=== PATIENT | male | born 1950 | race Caucasian/White ===

== ENCOUNTER 2017-12-28 07:29 | Day surgery (SDC) | payer MEDICARE, OTHER ==
[2017-12-28] MEDS ORDERED: NS 1,000 ML IV (08:00)
[2017-12-28] MEDS ORDERED: PROPOFOL 200 MG/20 ML VIAL As Ordered ×2 (08:24→08:28)
== END 2017-12-28 09:15 | disposition home or self-care (01) ==
LOC: M OPP 07:29
DX: Z12.11 Encounter for screening for malignant neoplasm of colon (principal); D12.5 Benign neoplasm of sigmoid colon; N40.0 Benign prostatic hyperplasia without lower urinary tract symptoms; Z79.899 Other long term (current) drug therapy; Z88.0 Allergy status to penicillin
CPT/HCPCS: 45380

== ENCOUNTER 2018-01-11 16:31 | Outpatient (CLI) | payer MEDICARE, OTHER ==
[2018-01-11] MEDS: IMMUNE GLOBULIN IM (17:52)
== END 2018-01-11 18:49 | disposition home or self-care (01) ==
LOC: M OPCLI4PR 16:31 → M PED 16:31 → M OPCLI4PR 18:49
DX: Z20.5 Contact with and (suspected) exposure to viral hepatitis (principal); Z79.899 Other long term (current) drug therapy
CPT/HCPCS: J1460

== ENCOUNTER 2023-08-12 06:39 | Day surgery (SDC) | payer MEDICARE, OTHER ==
[~2023-08-12] VITALS: Ht 182.9 cm; Wt 90.6 kg
[~2023-08-12 06:39] MED LIST: ALBU8.5H; ALFU10TA3 PO; BREO1INH INH; CYAN500T14 PO; EQL50TAB2 PO; FINA5TAB2 PO; MAGN400C2 PO; MULT-90 PO; MULT1TAB10 PO; OMEG10002 PO; OMEP40CA5 PO; VITA100093 PO
[2023-08-12] MEDS: NS 1,000 ML IV ONE (07:09)
[2023-08-12] MEDS ORDERED: propofoL 200 MG/20 ML VIAL As Ordered ONE (07:39)
[2023-08-12] MEDS ORDERED: LIDOCAINE 2% 100MG/5ML SDV (FOR ANES.) As Ordered ONE (07:39)
[2023-08-12 07:50] VITALS: TEMP 97.8
[2023-08-12 08:04] VITALS: BP 123/73; O2SAT 95
== END 2023-08-12 08:10 | disposition home or self-care (01) ==
LOC: M OPP 06:39
PROVIDERS: ATTEND Surgery
DX: Z12.11 Encounter for screening for malignant neoplasm of colon (principal); Z86.010 Personal history of colon polyps; K57.30 Diverticulosis of large intestine without perforation or abscess without bleeding; Z79.51 Long term (current) use of inhaled steroids; Z79.899 Other long term (current) drug therapy; Z88.0 Allergy status to penicillin

== ENCOUNTER → 2024-01-11 | Outpatient (REF) | payer MEDICARE, OTHER ==
[~2024-01-11] MED LIST changes: +ALFU10TA23 PO; -ALFU10TA3 PO
== END ==
LOC: M LABDRWAD 17:19
PROVIDERS: ATTEND Physician Assistant Medical
DX: Z12.5 Encounter for screening for malignant neoplasm of prostate (principal)